=== PATIENT | female | born 1960 | race Caucasian/White ===

== ENCOUNTER 2019-02-18 07:59 | Emergency (ER) | payer OTHER ==
[2019-02-18] MEDS: GLYCERIN (ADULT) SUPP PR (08:24)
== END 2019-02-18 09:47 | disposition home or self-care (01) ==
LOC: FTE 07:59
DX: K59.00 Constipation, unspecified (principal); F17.210 Nicotine dependence, cigarettes, uncomplicated
CPT/HCPCS: 74018; 99284-25